=== PATIENT | male | born 1945 | race Caucasian/White ===

== ENCOUNTER 2019-11-05 09:55 | Day surgery (SDC) | payer OTHER ==
[2019-11-04 17:36] VITALS: BMI 29.6
[2019-11-05] MEDS ORDERED: ACETAMINOPHEN 325 MG TABLET (FP) PO PRN (09:56)
--- NOTE | 2019-11-05 10:35 | EKG ---
Test Reason : Blood Pressure : / mmHG Vent. Rate : 074 BPM Atrial Rate : 074 BPM P-R Int : 200 ms QRS Dur : 130 ms QT Int : 420 ms P-R-T Axes : 014 084 006 degrees QTc Int : 466 ms NORMAL SINUS RHYTHM RIGHT BUNDLE BRANCH BLOCK ABNORMAL ECG NO PREVIOUS ECGS AVAILABLE Confirmed by Gopal Sorto MD ([id number]) on 11/05/2019 10:34:58 AM Referred By: Esvin Velazquez Confirmed By:Gopal Sorto MD
[2019-11-05] MEDS: KETOROLAC TROMETHAMINE 0.5% EYE DROP 1 DROP DROPS ONE ×5 (10:45→11:05)
[2019-11-05] MEDS: OFLOXACIN 0.3% OPHTHALMIC SOLUTION 5 ML BOTTLE ONE ×5 (10:45→11:05)
[2019-11-05] MEDS: CYCLOPENTOLATE HCL 1% OPHTH SOLN 2 ML BOTTLE ONE ×5 (10:45→11:05)
[2019-11-05] MEDS: PHENYLEPHRINE 2.5% OPHTH SOLN 15 ML BOTTLE ONE ×5 (10:45→11:05)
[2019-11-05] MEDS: TROPICAMIDE 1% OPHTH SOLN 15 ML BOTTLE ONE ×5 (10:45→11:05)
[2019-11-05] MEDS ORDERED: EPI-SHUGARCAINE (EPINEPHRINE 0.025% & LIDOCAINE-PF 0.75%) 4ML ONE (11:40)
[2019-11-05] MEDS ORDERED: POVIDONE-IODINE 5% OPHTHALMIC PREP 30 ML SOLUTION ONE (11:40)
[2019-11-05] MEDS ORDERED: TETRACAINE 0.5% OPHTH SOLN 2 ML BOTTLE ONE (11:40)
[2019-11-05] MEDS ORDERED: NEO/POLYMYX B SULF/DEXAMETH OPHTHALMIC 5ML BOTTLE ONE (11:40)
[2019-11-05] MEDS ORDERED: BETAXOLOL HCL 0.25% OPHTHALMIC 10 ML DROPSBTL ONE (11:40)
[2019-11-05] MEDS ORDERED: BACITRACIN/POLYMYXIN OPH OINT 3.5 GM TUBE ONE (11:40)
[2019-11-05] MEDS ORDERED: MIDAZOLAM HCL 2 MG/2 ML SINGLE DOSE VIAL ONE (11:51)
[2019-11-05 13:40] VITALS: TEMP 97.8
[2019-11-05 13:43] VITALS: BP 131/66; PULSE 70
--- NOTE | 2019-11-06 11:58 | OP ---
DATE OF OPERATION: 11/05/2019 PREOPERATIVE DIAGNOSIS: Cataract, left eye. POSTOPERATIVE DIAGNOSIS: Cataract, left eye. PROCEDURE: Cataract extraction via phacoemulsification with insertion of posteriorly chamber lens implant, left eye. SURGEON: Randall Juarez MD SWIMMING POOL ATTENDANT: Randall Juarez MD ANESTHESIA: Topical with sedation. ESTIMATED BLOOD LOSS: Less than 1 mL. COMPLICATIONS: None. SPECIMENS: None. PROCEDURE IN DETAIL: The patient was identified in the holding area. After all risks, benefits, and alternatives were explained to the patient, informed consent was obtained. The left side was marked with a marking pen. The patient then went to the operating room on an eye stretcher. After a formal timeout was performed, topical tetracaine eye drops were instilled onto the left eye. The patient was then instructed to sit up and look straight ahead and the coronal axes of astigmatism were marked using a bubble marker and a toric marking pen. The patient was then instructed to lie back down, and the left eye was prepped and draped in the usual sterile fashion and an eyelid speculum was placed beneath the eyelids of eft eye. Then the axis of astigmatism was marked onto the cornea using a toric marking pen and a toric dial. It was noted to be 150 degrees. Then an infratemporal paracentesis incision was created using a 15-degree blade. Preservative-free epinephrine and preservative-free lidocaine was then injected into the anterior chamber. Viscoelastic was then injected into the anterior chamber. A 2.4-mm keratome blade was then used to make a supratemporal incision and 360-degree continuous curvilinear capsulorrhexis was then created using bent cystostome and Utrata forceps. Hydrodissection was performed using balance saline solution on a cannula. Phacoemulsification was introduced to dissemble and remove the nucleus in its entirety. Irrigation/aspiration was then used to remove any remaining cortical material from the eye. The capsular bag was reformed using Viscoelastic. An Jai model [id number] with a power of 24.5 diopter, serial number [id number] was inspected, found to be defect free, and injected in the capsular bag. Irrigation/aspiration was then used to remove any remaining viscoelastic from the eye including posterior to the optic. The intraocular lens was rotated so that the axis of astigmatism on the cornea matched the axis of astigmatism on the optic which was noted to be 150 degrees. Then all wounds were hydrated with balanced saline solution and noted to be watertight. There was red reflex present. The anterior chamber was deep. The lens was appropriately found in the capsular bag with the axis of astigmatism at 150 degrees and the eye had adequate pressure. Topical antibiotic eye drops, and ointment were then administered to the left eye. The operative speculum was removed from the left eye. The left eye was shielded. The patient tolerated the procedure well and left the operating room in stable condition to follow up in the eye clinic tomorrow morning at 10:00. RANDALL JUAREZ M.D. [id number]
== END 2019-11-05 13:30 | disposition home or self-care (01) ==
LOC: FASU 09:55
PROVIDERS: ATTEND Ophthalmology
PROC: 08RK3JZ Replacement of Left Lens with Synthetic Substitute, Percutaneous Approach (ICD-10-PCS; principal; 2019-11-05 12:10)
DX: H26.9 Unspecified cataract (principal)
CPT/HCPCS: 93005

== ENCOUNTER 2020-05-19 15:24 | Day surgery (SDC) | payer OTHER ==
[2020-05-18 16:07] VITALS: BMI 29.7
[2020-05-19] MEDS: KETOROLAC TROMETHAMINE 0.5% EYE DROP 1 DROP DROPS OD SCH ×5 (11:45→12:05)
[2020-05-19] MEDS: CYCLOPENTOLATE HCL 1% OPHTH SOLN 2 ML BOTTLE OD SCH ×5 (11:45→12:05)
[2020-05-19] MEDS: TROPICAMIDE 1% OPHTH SOLN 15 ML BOTTLE OD SCH ×5 (11:45→12:05)
[2020-05-19] MEDS: PHENYLEPHRINE 2.5% OPHTH SOLN 15 ML BOTTLE OD SCH ×5 (11:45→12:05)
[2020-05-19] MEDS: OFLOXACIN 0.3% OPHTHALMIC SOLUTION 5 ML BOTTLE OD SCH ×5 (11:45→12:05)
[2020-05-19 15:20] VITALS: BP 129/78; PULSE 67; TEMP 98
[~2020-05-19 15:24] MED LIST: ACETAMINOPHEN 325 MG TABLET (FP) PO PRN
--- OUTSIDE RECORDS SUMMARY | 2020-05-19 17:59 | XMS ---
:1945 Author [facility] Care Team Providers Name Role Phone Veronique Knutson MD Unavailable Unavailable STAFF, DOCTOR NOT ON Unavailable Unavailable Re-disclosure Warning The records that you are about to access may contain information from federally- assisted alcohol or drug abuse programs. If such information is present, then the following federally mandated warning applies: This information has been disclosed to you from records protected by federal confidentiality rules (42 CFR part 2). The federal rules prohibit you from making any further disclosure of this information unless further disclosure is expressly permitted by the written consent of the person to whom it pertains or as otherwise permitted by 42 CFR part 2. A general authorization for the release of medical or other information is NOT sufficient for this purpose. The Federal rules restrict any use of the information to criminally investigate or prosecute any alcohol or drug abuse patient.The records that you are about to access may contain highly sensitive health information, the redisclosure of which is protected by Article 27-F of the [place] Public Health law. If you continue you may haveaccess to information: Regarding HIV / AIDS; Provided by facilities licensed or operated by the [place] Office of Mental Health; or Provided by the [place] Office for People With Developmental Disabilities. If such information is present, then the following [place] mandated warning applies: This information has been disclosed to you from confidential records which are protected by state law. State law prohibits you from making any further disclosure of this information without the specific written consent of the person to whom it pertains, or as otherwise permitted by law. Any unauthorized further disclosure in violation of state law may result in a fine or correction sentence or both. A general authorization for the release of medical or other information is NOT sufficient authorization for further disclosure. Allergies and Adverse Reactions Type Description Substance Reaction Status Data Source(s ) Drug allergy Penicillins Penicillins NOT SURE [facility] Encounters Encounter Providers Location Date Indications Data Source(s ) Outpatient Attender: DOCTOR 05/14/2018 [facility] STA[facility] 09:46:00 AM Hospital EDT [facility] Outpatient Attender: Veronique 02/08/2018 07:10:00 LEFT G57.32 Lesion Evgeny Knutson MD AM EDT of [facility] Hospital popliteal nerve LEFT G57.32 Lesion of lateral popliteal nerve Insurance Providers Payer name Policy type Policy ID Covered Covered libertarian's Policy P gurwinder / Coverage libertarian ID relationship to Tom Inf ormation type otm MEDICARE [id number] SP [id number] TRANS[employer] [id number] SP [id number] [employer] MEDICARE [id number] SP [id number] MEDICARE [id number] PT [id number] TRANS[employer] [id number] PT [id number] INSURANCE MEDICARE [id number] PT [id number] A Problems, Conditions, and Diagnoses Code Display Name Description Problem Type Effective Dates Data Source(s) M25.562 Pain in left knee M25.562 Diagnosis 05/14/2018 [facility] 09:46:00 AM EDT Hospital M71.22 Synovial cyst of M71.22 Diagnosis 02/08/2018 [facility] popliteal space 07:10:00 AM EDT [facility]osp [facility] [[facility]], left knee M25.462 Effusion, left knee M25.462 Diagnosis 02/08/2018 [facility] 07:10:00 AM EDT Hospital G58.8 Other specified G58.8 Diagnosis 02/08/2018 [facility] mononeuropath[facility] 07:10:00 AM EDT Hos pital Results ID Date Data Source [id number] 05/16/2020 11:08:00 AM EDT [facility] Name Value Range Interpretation Description Data Sup porting Code Source(s) Document(s ) SARS [facility] coronavirus 2 RNA This lab was ordered by IRINA FRENCH and reported by [facility]. Procedure
--- NOTE | 2020-05-20 00:30 | OP ---
DATE OF OPERATION: 05/19/2020 PREOPERATIVE DIAGNOSIS: Cataract, right eye. POSTOPERATIVE DIAGNOSIS: Cataract, right eye. PROCEDURE: Cataract extraction via phacoemulsification with insertion of posterior chamber lens implant, right eye, Toric lens. SURGEON: Randall Juarez MD. [employer]OES SUPERVISOR: Randall Juarez MD. ANESTHESIA: Topical with sedation. ESTIMATED BLOOD LOSS: Less than 1 mL. COMPLICATIONS: None. SPECIMENS: None. PROCEDURE: The patient is identified in the holding area. After all risks, benefits, and alternatives were explained to the patient, informed consent was obtained. The right eye was marked with a marking pen. The patient then entered the operating room on an eye stretcher. After formal timeout was performed, topical tetracaine eyedrops were instilled onto the right eye. The patient was then instructed to sit up and look straight ahead and the cardinal axis of astigmatism were marked onto the eye using a Toric marking pen, and a Toric marker. The patient was then instructed to lay back down, and the right eye was prepped and draped in the usual sterile fashion. Eyelid speculum was placed beneath the eyelids of the right eye. Then the axis of astigmatism was marked using a Toric dial and a Toric marking pen; the axis was noted to be 10 degrees. Then a supratemporal paracentesis incision was created using 15-degree blade. Topical preservative-free epinephrine and preservative-free lidocaine was injected to the anterior chamber, and viscoelastic was injected into the anterior chamber. A 2.4-mm keratome blade was then used to make an infratemporal incision. A 360-degree continuous curvilinear capsulorrhexis was then created using bent cystotome and Utrata forceps. Hydrodissection was performed using balanced saline solution on the cannula. Phacoemulsification was then introduced, disassembled and removed the nucleus in its entirety. Irrigation/aspiration was then used to remove any remaining cortical material from the eye. The capsular bag was reformed using viscoelastic. An Jai model [id number] with a power of 20.5 diopters, serial number [id number] was inspected and found to be defect free and injected into the capsular bag. Irrigation/aspiration was then used to remove any remaining viscoelastic from the eye including posterior to the optic. All wounds were hydrated with balanced salt solution, and prior to the wound hydration, the intraocular lens was rotated so that the axis of astigmatism on the optic matched the axis of astigmatism on the cornea, which was noted to be 10 degrees. Again, all wounds were hydrated with balanced saline solution and noted to be watertight. There was a red reflex present. The anterior chamber was deep. The lens was perfectly centered in the capsular bag with the axis of astigmatism at 10 degrees, and there was a red reflex present. Then topical antibiotic eyedrops and antibiotic ointment was then administered to the right eye. The eyelid speculum was then removed from the right eye. The right eye was shielded. The patient tolerated the procedure well and left the operating room in stable condition to follow up in the eye clinic tomorrow morning at 10 o'clock. RANDALL JUAREZ M.D. [id number]
== END 2020-05-19 15:25 | disposition home or self-care (01) ==
LOC: FASU 15:24
PROVIDERS: ATTEND Ophthalmology
PROC: 08RJ3JZ Replacement of Right Lens with Synthetic Substitute, Percutaneous Approach (ICD-10-PCS; principal; 2020-05-19 14:04)
DX: H26.9 Unspecified cataract (principal)